=== PATIENT | female | born 1980 | race Caucasian/White ===

== ENCOUNTER → 2018-09-21 08:18 | Outpatient (CLI) | payer OTHER, SELFPAY ==
[2018-09-21 08:36] LABS: Bacteria Urine None Seen; RBC Urine None Seen (0-5/HPF); WBC Urine None Seen (0-5/HPF)
[2018-09-21 09:04] LABS: Hematocrit 36.8 % (36-46); Hemoglobin 12.1 g/dL (12.0-16.0); Mean Corpuscular HGB Conc 32.7 % (30-36); Mean Corpuscular Hemoglobin 27.1 PG (26-34); Mean Corpuscular Volume 82.7 fL (80-100); Platelet Count 246 X10^3/uL (150-400); Red Blood Cell Count 4.45 X10^6/uL (4.0-5.2); Red Cell Distribution Width 14.5 % (11.6-14.8); White Blood Cell Count 6.4 X10^3/uL (4.5-11.0)
[2018-09-21 09:06] LABS: Appearance Urine UA CLEAR; Bilirubin Urine UA NEGATIVE (NEGATIVE); Color Urine UA YELLOW; Glucose Urine UA NEGATIVE (Negative); Ketones Urine UA NEGATIVE (NEGATIVE); Leukocyte Esterase Urine UA NEGATIVE (NEGATIVE); Nitrite Urine UA NEGATIVE (Negative); Occult Blood Urine UA NEGATIVE (Negative); Protein Urine UA NEGATIVE (Negative); Specific Gravity Urine UA 1.025 (1.000-1.035); Urobilinogen Urine UA 0.2 E.U./dL (0.2); pH Urine UA 5.5 (4.5-8.0)
[2018-09-21 09:18] LABS: Urine Comments Microscopic Normal
[2018-09-21 09:19] LABS: Culture Indicated Urine Cult Not Indicated
[2018-09-21 09:42] LABS: Alanine Aminotransferase 11 IU/L (9-52); Albumin 4.1 g/dL (3.5-5.0); Albumin Globulin Ratio 1.4 (1.0-2.8); Alkaline Phosphatase 75 U/L (38-126); Aspartate Aminotransferase 19 IU/L (14-36); BUN Creatinine Ratio 22.5 (6-22); Bilirubin Total 0.2 mg/dL (0.2-1.3); Blood Urea Nitrogen 18 mg/dL (7-17); Carbon Dioxide 26 mmol/L (22-32); Chloride 105 mmol/L (98-107); Cholesterol 149 mg/dL (140-199); Estimated Glomerular Filt Rate > 60.0 mL/min (>60); Glucose 91 mg/dL (70-100); HDL Cholesterol 58 mg/dL (40-60); HEMOLYSIS < 15 (0-50); LDL Cholesterol Calculated 78 mg/dL (<100); Potassium 4.1 mmol/L (3.4-5.1); Sodium 140 mmol/L (137-145); Total Protein 7.1 g/dL (6.3-8.2); Triglycerides 64 mg/dL (35-150)
== END ==
PROVIDERS: PCP Nurse Practitioner Family; Visit Provider Nurse Practitioner Family
DX: Z00.00 Encounter for general adult medical examination without abnormal findings (principal); Z13.6 Encounter for screening for cardiovascular disorders
CPT/HCPCS: 36415; 80053; 80061; 81001; 85027

== ENCOUNTER → 2020-06-03 15:40 | Outpatient (CLI) | payer OTHER, MEDICAID, SELFPAY ==
--- NOTE | 2020-06-03 | DI.US.S_ITS ---
PROCEDURE: US OB >= 14 WEEKS FETUS INDICATIONS: 20 WEEKS ANATOMY SCAN OUTSIDE/PRIOR DATING DATA: Last menstrual period (LMP): 01/13/2020. LMP-based estimated date of delivery (ALANNAH): 10/19/2020 . First dating scan (date and location): 06/03/2020 . Estimated date of delivery (ALANNAH) from first dating scan: 10/21/2020 . TECHNIQUE: Real-time scanning was performed of the fetus, with image documentation and biometric measurements. Endovaginal scanning: No COMPARISON: None. FINDINGS: General: A single living intrauterine gestation is present. Presentation: Vertex. Placenta: Placental position is posterior , without previa. Amniotic fluid index: 13.4 cm, normal range is 5-24 cm. heart rate: 141 beats per minute. Maternal cervical canal: 4.4 cm long. Normal lower limit is 2.5 cm biometrics: Biparietal diameter: 20 weeks 1 day Head circumference: 20 weeks Abdominal circumference: 19 weeks 5 days Femur length: 20 weeks 1 day Estimated gestational age from initial scan: not applicable. Composite gestational age from present scan: 20 weeks 0 days Estimated weight and percentile: 323 g, 28th percentile Measurement variability for biometric dating: +/- 7 days from 14 weeks to 15 weeks 6 days gestation, +/- 10 days from 16 weeks to 21 weeks 6 days gestation, +/- 2 weeks from 22 weeks to 27 weeks 6 days gestation, +/- 3 weeks for 28 weeks gestation or later. weight reference: 4500 g or EFW >90/95% is considered macrosomia or large for gestational age. EFW <10% is small for gestational age. EFW 5% or less is considered intra-uterine growth restriction. Anatomic survey: Neuro: Ventricles are non-dilated at less than 10 mm. Cisterna magna is normal at 3-11 mm. Cerebellum is normal in size and morphology. Nuchal skin fold: Normal at less than 6 mm between 14-21 weeks gestational age. Face: Nose and lips, facial profile are normal. Spine: No evidence for spina bifida. Heart: 4-chambered heart is present, with normal ventricular outflow tracts. Diaphragm: Diaphragm is intact. Stomach: Left-sided stomach is present. Kidneys: No hydronephrosis. Normal is less than 5 mm in 2nd trimester, less than 7 mm in 3rd trimester. Cord: 3-vessel cord has orthotopic insertion. Bladder: Normal in size. Extremities: All 4 extremities identified. IMPRESSION: 1. 20 week 0 day single living IUP corresponding to ultrasound ALANNAH of 10/21/2020. 2. Normal anatomic survey. Dictated by: Jairo Brooks [facility] Interpreted: Marcos Marina MD on 06/03/2020 at 16:59 Approved by: Marcos Marina M.D. on 06/03/2020 at 17:38
== END ==
PROVIDERS: PCP Nurse Practitioner Family; Referring Provider Nurse Practitioner Obstetrics & Gynecology; Visit Provider Nurse Practitioner Obstetrics & Gynecology
DX: Z36.89 Encounter for other specified antenatal screening (principal); Z3A.20 20 weeks gestation of pregnancy
CPT/HCPCS: 76811

== ENCOUNTER → 2020-07-17 08:09 | Outpatient (CLI) | payer OTHER, MEDICAID, SELFPAY ==
[2020-07-17 09:26] LABS: Hematocrit 32.3 % (36-46); Hemoglobin 10.7 g/dL (12.0-16.0); Mean Corpuscular HGB Conc 33.1 % (30-36); Mean Corpuscular Volume 87.8 fL (80-100); Platelet Count 227 X10^3/uL (150-400); Red Blood Cell Count 3.68 X10^6/uL (4.0-5.2); Red Cell Distribution Width 13.2 % (11.6-14.8); White Blood Cell Count 7.6 X10^3/uL (4.5-11.0)
[2020-07-17 09:42] LABS: GTT (PREG) 1 Hour PP 50gm Dose 110 mg/dL (76-139)
== END ==
PROVIDERS: PCP Nurse Practitioner Family; Referring Provider Nurse Practitioner Obstetrics & Gynecology; Visit Provider Nurse Practitioner Obstetrics & Gynecology
DX: Z34.90 Encounter for supervision of normal pregnancy, unspecified, unspecified trimester (principal); Z13.1 Encounter for screening for diabetes mellitus; Z3A.26 26 weeks gestation of pregnancy
CPT/HCPCS: 36415; 82950; 85027

== ENCOUNTER → 2020-09-20 19:11 | Outpatient (ROUT) | payer OTHER, MEDICAID, SELFPAY ==
[2020-09-20 19:28] LABS: Add Manual Diff / Slide Review NO; Basophils Absolute Auto 0 /uL (0-100); Basophils Percent Auto 0.3 % (0-2); Eosinophils Absolute Auto 100 /uL (0-450); Hematocrit 32.8 % (36-46); Hemoglobin 10.8 g/dL (12.0-16.0); Lymphocytes Absolute Auto 2200 /uL (1100-4500); Mean Corpuscular Hemoglobin 27.9 PG (26-34); Mean Corpuscular Volume 84.4 fL (80-100); Monocytes Absolute Auto 900 /uL (0-900); Monocytes Percent Auto 11.8 % (3-14); Neutrophils Absolute Auto 4000 /uL (1500-7000); Neutrophils Percent Auto 55.9 % (50-75); Platelet Count 234 X10^3/uL (150-400); Red Blood Cell Count 3.88 X10^6/uL (4.0-5.2); Red Cell Distribution Width 14.6 % (11.6-14.8); White Blood Cell Count 7.2 X10^3/uL (4.5-11.0)
[2020-09-20 19:44] LABS: Aspartate Aminotransferase 27 IU/L (14-36); BUN Creatinine Ratio 14.5 (6-22); Blood Urea Nitrogen 9 mg/dL (7-17); Estimated Glomerular Filt Rate > 60.0 mL/min (>60); Uric Acid 3.8 mg/dL (2.5-6.2)
[2020-09-20 19:45] LABS: Protein (Total) Urine Random 7 mg/dL (0-12); Protein Creatinine Ratio Urine 0.02 GRAM/24H
== END ==
PROVIDERS: PCP Nurse Practitioner Family; Visit Provider Nurse Practitioner Obstetrics & Gynecology
DX: Z34.93 Encounter for supervision of normal pregnancy, unspecified, third trimester (principal); R03.0 Elevated blood-pressure reading, without diagnosis of hypertension
CPT/HCPCS: 82570; 84156; 84450; 84550; 85025; 87081

== ENCOUNTER 2020-10-18 22:58 | Inpatient (IN) | payer OTHER, MEDICAID, SELFPAY ==
--- NOTE | 2020-10-18 23:10 | PM.OBHP.1 ---
OB HPI Date/Time Date of admission: 10/18/20 Date Patient Seen: 10/18/20 Time Patient Seen: 23:00 History of Present Condition Chief complaint: : 3 Para: 2 Estimated Date of Delivery: 10/19/20 Estimated Gestational Age (weeks): 39.6 Narrative: Clarisse Lemons is a 40 year old female @ [id number] by LMP and early US who presents for evaluation of labor. Desires low intervention, unmedicated . Has been having strong contractions for just over an hour. Uncomplicated PN care w/ CNM. is present and supportive. History of Present care: good care, initiated at week # (11), number of visits (11) and pounds weight gain (-2) Dating criteria: LMP confirmed by 1st trimester US Ultrasounds: normal mid trimester US Obstetrical complications: none Medical complications: other (subclinical hypothyroid) Preadmission Labs Blood type: O (+) positive -: Antibody screen: negative, GBS status: negative, HBsAG: negative and RPR/VDLR: negative -: Chlamydia screen: not detected and Gonorrhea screen: not detected -: Rubella: immune HCT: 32.8 HCAB: negative 1 hr GTT: 110 Prior (ies) History: 08/23/12: NSVB@ 40.1wks, male, Luis Fernando, 6onw8wk, 17hr, epis w/ 3rd degree, PPD 09/17/16: NSVB @ 39.4wks, female, Lashanda, 5hr, 2nd degree Evaluation Evaluation Comments: not completed, 2nd stage shortly after arrival [facility] Medical History Allergies (~2007) Asthma (~2007) Depression (~2012) Encounter for wellness examination in adult Psoriasis (~1995) Surgical History Anesthesia History of tonsillectomy (~1982) Social History Smoking Status: Never smoker second hand exposure: No alcohol intake: never substance use type: does not use Meds Home Medications and Allergies Home Medications Medication Instructions Recorded Confirmed Type sertraline 50 mg tablet 50 mg PO DAILY 09/20/18 09/20/18 History Allergies Allergy/AdvReac Type Severity Reaction Status Date / Time No Known Drug Allergies Allergy Unverified 10/19/20 00:03 Review of Systems Review of Systems ROS: Yes All systems reviewed with the patient and are negative except as otherwise documented Exam Vital Signs (past 8 hours): BP 112/33, HR 94bpm, T 36.1C Resp Effort & Inspection: normal respiratory effort Auscultation: clear to auscultation bilaterally Cardio Rate: regular rate Rhythm: regular rhythm Heart Sounds: S1 normal and S2 normal Presentation: vertex Assessment and Plan Assessment and Plan Assessment and Plan narrative: Admit, routine orders. Continuous labor support. Anticipate NSVB shortly.
--- NOTE | 2020-10-18 23:45 | PM.OBPRVD ---
Labor & Delivery Delivery date: 10/19/20 Intrapartal Events: Precipitous Labor < 3 hours Cervical ripening method: none Induction method: none Delivery monitor: none Route of delivery: Episiotomy description: None L&D Laceration Description: Perineal - 1st Degree Delivery repair: chromic (3.0) Estimated blood loss (mL): 200 Anesthesia Type: None Narrative: Clarisse arrived on the unit in apparent active labor. Went to the bathroom to change into a gown and began to feel a spontaneous urge to push on the toilet with a bulging bag of yates noted. Clarisse was assisted to hands and knees on the bathroom for a NSVB of a vigorous baby girl in direct OA position en caul. There was no nuchal cord and the shoulders delivered easily. The was passed through Clarisse's legs to her arms. Clarisse was assisted to bed for spontaneous, Schultze delivery of an apparently intact placenta, membranes and 3VC. Fundus was immediately firm and bleeding minimal. Inspection revealed a short 1st degree perineal laceration which was repaired w/ 3.0 chromic, single stitch, under 1% lidocaine local. Baby 1: gender: Female Presentation: vertex Placenta delivery description: Spontaneous Cord Vessel Description: 3 Vessels score (1 min): 8 score (5 min): 9 weight: 2.873 kg Plan for aftercare: Routine care
[2020-10-18 23:56] VITALS: BP 108/58
[2020-10-19 00:59] LABS: COVID19 - ADMIT (NP swab/PCR) Negative (Negative)
[2020-10-19] MEDS: DERMOPLAST SPRAY 20% 60 ML 1 SPRAY TOP (13:24)
[2020-10-19] MEDS: LANOLIN OINT 7 GM 1 APPLIC TOP (13:24)
[2020-10-19] MEDS: IBUPROFEN 600 MG TABLET PO (13:24)
--- NOTE | 2020-10-19 17:40 | PM.OBDS.1 ---
Discharge Providers Provider Date of admission: 10/18/20 22:58 Discharge Date: 10/19/20 Primary care physician: JORDIN Shabazz Consults: 10/19/20 23:43 Consult to [employer] Routine Comment: Discharge provider: Kayla Corley CNM Summary Hospital Course Date Patient Seen: 10/19/20 Time Patient Seen: 17:40 Diagnoses: o70.0 Hospital Course: Clarisse is voiding, ambulating and independently, eager for discharge to home. Lochia is light, no clots. Tolerating general diet. Has declined pain medication, stating cramping pain is tolerable. Peripartum Data Delivery Method: Natural Vaginal Laceration Description: Perineal - 1st Degree Episiotomy description: None complications: none Burnett 1: Gender: Female Disposition of : home Discharge Diagnosis (1) First degree perineal laceration during delivery: Start Date: 10/18/20 Start Time: 23:16 Status: Acute Problem Details: routine course Status at Discharge Cognitive/behavioral status at discharge: oriented and calm Functional status at discharge: independent ambulation Overall status at discharge: patient is progressing back to baseline Time Spent with Patient Time attestation: Total time spent providing and/or coordinating discharge services: Time spent: Less than 30 minutes Specific discharge activities: pelvic rest x 6 weeks Objective Labs Labs: Laboratory Results - last 24 hr 10/18/20 23:55 SARS-CoV-2 (PCR) Negative Exam Vital Signs (past 8 hours): BP 112/67mmHg, HR 81bpm, RR 16/min, T 98.1F Temporal Other: Fundus firm, lochia light, no clots, perineum well approximated w/ mild edema Discharge Plan Discharge Plan Patient Disposition: Home Discharge orders & Medications Prescriptions: New acetaminophen 325 mg Tablet 650 mg PO Q6HR PRN (Reason: Pain, Mild (1-3)) 14 Days Qty: 60 RF: 0 ibuprofen 600 mg Tablet 600 mg PO Q6HR PRN (Reason: Pain, Mild (1-3)) 14 Days Qty: 90 RF: 0 Continued sertraline 50 mg tablet 50 mg PO DAILY 90 Days Qty: 90 RF: 4 Follow up/Referrals: Kayden Hoffman ARNP [Primary Care Provider] - Kayla Corley CNM [[employer]ologist] - Diet/Activity/Treatments Diet: Regular Activity: pelvic rest x 6 weeks Skin/Wound/Dressing Care Report to your healthcare provider any signs of infection, such as:: chills, fever, increased pain, unusual drainage and unusual redness Visit Report/Discharge Packet Instructions: Depression Stand Alone Forms: Discharge: Care Discharge Data Primary Care Provider: Kayden Hoffman
== END 2020-10-19 18:50 | disposition home or self-care (01) | DRG 560 ==
PROVIDERS: Admitting Provider Nurse Practitioner Obstetrics & Gynecology; PCP Nurse Practitioner Family; Referring Provider Nurse Practitioner Obstetrics & Gynecology; Visit Provider Nurse Practitioner Obstetrics & Gynecology
DX: O62.3 Precipitate labor (principal); Z3A.39 39 weeks gestation of pregnancy; Z37.0 Single live birth; O70.0 First degree perineal laceration during delivery; Z20.822 Contact with and (suspected) exposure to COVID-19
CPT/HCPCS: 87635; C9803; G0379

== ENCOUNTER 2020-10-19 20:36 | Observation (INO) | payer OTHER, MEDICAID, SELFPAY ==
[2020-10-19] VITALS (7 sets, daily range): BP systolic 107–125; BP diastolic 56–63; PULSE 75–93; RESP 8–19; TEMP 36.8; O2SAT 95–99; BMI 27.8
--- NOTE | 2020-10-19 | DI.ECHO.S_ITS ---
[facility]---------+ [facility] +---------+ : : [address] [place] [address] : : : : [id number] : : : : Phone: [phone]+ Echocardiogram Report + + :Name: DENNY PATEL Study Date: 10/20/2020 Height: 62 in : :[facility] ReadingLocation: Weight: 152 lb : : Gender: Female BSA: 1.7 m2 : :: 1980 Age: 40 yrs BP: 107/56 mmHg: :Reason For Study: SYNCOPE, R/O CVA : :Ordering Physician: EPIFANIO, : :TONYA Performed By: Yesenia Weiss : :Referring: TONYA GODFREY : + + Interpretation Summary Left ventricular systolic function is normal with an estimated ejection fraction of 60 to 65% without focal abnormality. Left ventricular size and wall thickness are normal with normal diastolic function and normal filling pressures. The right ventricle appears normal in size and systolic function. Right ventricular systolic pressure cannot be estimated CVP is likely around 3 mmHg. Both atria are normal in size. While the interatrial septum visually appears intact, injection of agitated saline echo contrast suggests a small number of bubbles within the left atrium within 3 beats of right atrial opacification, suggesting a probable small patent foramen ovale with scant right to left shunting but without evidence for significant left to right shunting. There is no significant valvular abnormality. Procedure: A two-dimensional transthoracic echocardiogram with color flow and Doppler was performed. The study quality was technically adequate. There is no prior echocardiogram noted for this patient. A saline contrast injection was performed to assess for cardiac shunting. The injection was performed through an intravenous line in the left arm. The patient was in sinus rhythm with heart rates between 69-83 bpm during the exam. Left Ventricle: The left ventricle appears normal in size, wall thickness, and systolic function without any focal wall motion abnormalities. The ejection fraction is estimated to be 60-65%. Diastolic parameters suggest probable normal left ventricular diastolic function and normal filling pressures. Right Ventricle: The right ventricle is normal in size and function. Atria: Both atria are normal in size. The interatrial septum grossly appears intact with no obvious evidence for an atrial septal defect. Injection of agitated saline echo contrast suggests a scant number of bubbles in the left atrium within 3 beats of right atrial opacification, suggesting a probable small patent foramen ovale. Mitral Valve: The mitral valve is normal in structure and function. There is trace mitral regurgitation. Aortic Valve: The aortic valve is trileaflet. The aortic valve opens well. There is no aortic valve stenosis. No aortic regurgitation is present. Tricuspid Valve: The tricuspid valve is normal in structure and function. There is trace tricuspid regurgitation. Pulmonary artery pressures cannot be estimated because of the lack of a measurable TR jet velocity but the IVC suggests a CVP of around 3 mmHg. Pulmonic Valve: The pulmonic valve leaflets are thin and pliable; valve motion is normal. There is trace pulmonic regurgitation. There is no significant valvular heart disease. Great Vessels: The aortic root is normal size. The dimensions of the ascending aorta are normal. The IVC is of normal diameter and collapses greater than 50% with a sniff. This suggests a low right atrial pressure of 3 mm Hg. Pericardium/ Pleura There is no pericardial effusion. There is no pleural effusion. MMode/2D Measurements & Calculations LVIDd: 4.8 cm LVOT diam: 1.9 cm LVIDs: 3.1 cm Ao root diam: 2.8 cm FS: 36.1 % asc Aorta Diam: 2.6 cm IVSd: 0.75 cm Ao Arch Diam (Prox Trans): 2.4 cm LVPWd: 0.80 cm LV rogers. diameter/BSA (cm/m^2): 2.8 LV sys. diameter/BSA (cm/m^2): 1.8 LA A2 area: 13.9 cm2 RA long axis: 4.5 cm LA A4 area: 16.9 cm2 RA area: 14.8 cm2 LA length (vol): 4.6 cm RA vol: 41.5 ml LA vol: 43.2 ml RA : 24.4 ml/m2 LA vol index: 25.4 ml/m2 IVC diam: 1.8 cm RVD1 (basal): 3.5 cm TAPSE: 2.5 cm Doppler Measurements & Calculations Ao V2 max: 184.7 cm/sec LVOT Max Reid: 96.5 cm/sec Ao V2 mean: 120.0 cm/sec LV V1 max P.7 mmHg Ao max P.6 mmHg LV V1 VTI: 19.2 cm Ao mean P.7 mmHg ERIC(I,D): 1.5 cm2 Ao V2 VTI: 35.2 cm ERIC(V,D): 1.4 cm2 sev ratio: 0.55 ERIC indexed to BSA (cm^2/m^2): 0.87 MV E max reid: 72.4 cm/sec PA V2 max: 127.1 cm/sec MV A max reid: 54.0 cm/sec PA V2 mean: 92.5 cm/sec MV E/A: 1.3 PA mean P.7 mmHg Med Peak E' Reid: 10.4 cm/sec PA pr(Accel): 20.8 mmHg E/E' med: 6.9 Lat Peak E' Reid: 16.1 cm/sec E/E' lat: 4.5 E/e' average: 5.7 MV dec time: 0.20 sec SV(LVOT): 51.9 ml Reading Physician:09:20 AM
--- NOTE | 2020-10-19 20:55 | DI.CT.S_ITS ---
PROCEDURE: CT HEAD/BRAIN WO CON INDICATIONS: near syncope/altered TECHNIQUE: Noncontrast 4.5 mm thick angled axial sections acquired from the foramen magnum to the vertex, with coronal and sagittal reformats. For radiation dose reduction, the following was used: automated exposure control, adjustment of mA and/or kV according to patient size. COMPARISON: None. FINDINGS: Image quality: Excellent. CSF spaces: Basal cisterns are patent. No extra-axial fluid collections. Ventricles are normal in size and shape. Brain: No midline shift. No intracranial masses or hemorrhage. Focal hypodensity in the left thalamus is suspicious for a chronic lacunar infarct. Godoy-white matter interface is normal. Skull and face: Calvarium and visualized facial bones are intact, without suspicious lesions. Sinuses: Visualized sinuses and mastoids are clear. IMPRESSION: 1. No acute intracranial abnormality. 2. Possible small chronic lacunar infarct in the left thalamus. 3. Consider MRI for further evaluation if symptoms continue. Dictated by: Apollo Medina M.D. on 10/19/2020 at 21:22 Approved by: Apollo Medina M.D. on 10/19/2020 at 21:26
[2020-10-19 21:13] LABS: BUN Creatinine Ratio 23.3 (6-22); Blood Urea Nitrogen 17 mg/dL (7-17); Carbon Dioxide 20 mmol/L (22-32); Chloride 106 mmol/L (98-107); Estimated Glomerular Filt Rate > 60.0 mL/min (>60); Glucose 99 mg/dL (70-100); HEMOLYSIS < 15 (0-50); Potassium 3.5 mmol/L (3.4-5.1); Sodium 134 mmol/L (137-145)
[2020-10-19 21:14] LABS: Magnesium 1.8 mg/dL (1.6-2.3)
--- NOTE | 2020-10-19 21:14 | PC.NURSE ---
Patient was at home in rocking chair talking to mother when reported to mother and spouse that something is wrong. Platter like she couldn't get up from chair or walk to car. Platter light headed and shaky. At time of arrival, was very pale, diaphoretic, mumbling, and staring away with minimal responses. Couldn't initially state order of events, word finding difficulty, not responsive to infant daughter in the room who was crying. When was able to speak, word finding difficulty, focal shaking, reports she was feeling better but still having difficulty forming thoughts and words. Post vaginal pad checked, not saturated with blood. B. Notified MD of patients condition, code stroke activated, patient directly to CT.
[2020-10-19 21:17] LABS: Add Manual Diff / Slide Review NO; Basophils Absolute Auto 0 /uL (0-100); Basophils Percent Auto 0.3 % (0-2); Eosinophils Absolute Auto 100 /uL (0-450); Eosinophils Percent Auto 0.8 % (2-4); Hematocrit 36.3 % (36-46); Lymphocytes Absolute Auto 2800 /uL (1100-4500); Lymphocytes Percent Auto 22.7 % (25-40); Mean Corpuscular Hemoglobin 27.9 PG (26-34); Mean Corpuscular Volume 84.4 fL (80-100); Monocytes Absolute Auto 1000 /uL (0-900); Monocytes Percent Auto 8.6 % (3-14); Neutrophils Absolute Auto 8200 /uL (1500-7000); Neutrophils Percent Auto 67.6 % (50-75); Platelet Count 238 X10^3/uL (150-400); Prothrombin Time 10.8 SECONDS (10.1-12.7); Red Cell Distribution Width 15.8 % (11.6-14.8); White Blood Cell Count 12.2 X10^3/uL (4.5-11.0)
--- NOTE | 2020-10-19 21:28 | ED.SYNCOPE ---
HPI - Syncope General Chief Complaint: Syncope Stated Complaint: Near Syncope Time Seen by Provider: 10/19/20 21:21 Source: patient and EMS Mode of arrival: EMS History of Present Illness HPI narrative: 40-year-old female presents by EMS for evaluation of a near syncopal episode and altered mental status presents by EMS for evaluation of acute confusion, slurred speech, trouble finding words at about 8:00 p.m.. She had been in her normal state of health just prior to this event. She denies any pain or fever chills. She was just discharged from the hospital today after delivering a child, full-term by vaginal delivery without complications. She denies any significant vaginal bleeding or discharge. She has no dysuria, frequency or urgency. She denies any history of the same and only complications during duration of was hypothyroid. She did have depression with 2 prior pregnancies and started sertraline 50 mg today. Patient activated as a code stroke Related Data Previous Rx's Medication Instructions Recorded acetaminophen 325 mg tablet 650 mg PO Q6HR PRN 14 Days #60 tab 10/19/20 ibuprofen 600 mg tablet 600 mg PO Q6HR PRN 14 Days #90 tab 10/19/20 sertraline 50 mg tablet 50 mg PO DAILY 90 Days #90 tab 10/19/20 Allergies Allergy/AdvReac Type Severity Reaction Status Date / Time No Known Drug Allergies Allergy Unverified 10/19/20 20:52 Review of Systems Review of Systems Narrative: GENERAL: Denies chills, fatigue, malaise, fever, sweats. HEENT: Denies sinus pain, ear pain, sore throat, difficulty swallowing, dizziness. RESPIRATORY: Denies dyspnea, cough, wheezing, hemoptysis, sputum. CARDIOVASCULAR: Denies chest pain, palpitations, orthopnea, edema, GASTROINTESTINAL: Denies nausea, vomiting, abdominal pain, diarrhea, constipation, melena. : Denies dysuria, frequency, incontinence, hematuria, urinary retention. MUSCULOSKELETAL: denies weakness, joint pain, or bony pain SKIN: Denies rash, skin lesions, or other NEUROLOGIC: See HPI PSYCHIATRIC: No concerning psychosocial issues. 12 point review of systems is negative except for those stated above Patient History Medical History Allergies (~2007) Asthma (~2007) Depression (~2012) Encounter for wellness examination in adult Psoriasis (~1995) Surgical History Anesthesia History of tonsillectomy (~1982) Social History household members: spouse, family and children Smoking Status: Never smoker second hand exposure: No alcohol intake: never substance use type: does not use Smoking Status: Never smoker Exam Narrative Exam Narrative: GENERAL: [40] year old patient appears stated age. Well-developed patient, in mild distress. Pale, stuttering speech HEAD: Atraumatic. Normocephalic. EYES: Pupils equal round and reactive. Extraocular motions intact. No scleral icterus. No injection or drainage. ENT: Nose without bleeding, purulent drainage. Throat without erythema, tonsillar hypertrophy or exudate. Airway patent. NECK: Trachea midline. Non tender CARDIOVASCULAR: Regular rate and rhythm without murmurs, gallops, or rubs. RESPIRATORY: Clear to auscultation. Breath sounds equal bilaterally. No wheezes, rales, or rhonchi. GASTROINTESTINAL: Abdomen soft, non-tender, nondistended. EXTREMITIES: No edema or joint tenderness. BACK: Nontender without deformity or crepitance. No flank tenderness. NEURO: AOx3. SKIN: No rash or erythema of visible areas Initial Vital Signs Initial Vital Signs: Vital Signs Temperature 98.3 F 10/19/20 20:47 Pulse Rate 93 H 10/19/20 20:47 Respiratory Rate 12 10/19/20 20:47 Blood Pressure 125/63 10/19/20 20:47 Pulse Oximetry 99 10/19/20 20:47 Scores NIH Stroke Scale Level of Conciousness: Alert, keenly responsive Ask month/age: Answers both questions correctly. Open/close eyes, close hand: Performs both tasks correctly Best gaze horizontal: Normal Visual howard: No visual loss Facial palsy: Normal symetrical movement Left arm drift: No drift for full 10 sec Right arm drift: No drift for full 10 sec Left leg drift: No drift for full 5 sec Right leg drift: No drift for full 5 sec Limb ataxia: Absent Sensory on face/arms/legs: Normal, no sensory loss Best language: Mild to moderate, slurs some words Dysarthria: Mild to mod,some slurring Extinction or inattention: No abnormality Total NIH Stroke scale score: 2 Course Orders Ordered: ED Orders 10/19/20 20:44 Basic Metabolic Panel Stat Complete Blood Count AUTO DIFF Stat Magnesium Stat Prothrombin Time INR Stat Type and Screen Stat 10/19/20 20:55 CT head/brain wo con Stat Urinalysis and Microscopic Stat 10/19/20 20:56 EKG-12 Lead Stat 10/19/20 21:46 CT angio head and neck Stat Acetaminophen (Acetaminophen 325 Mg Tablet) 650 mg PO Q6HR PRN PRN Reason: Pain, Mild (1-3) Hydrocodone Bitart/Acetaminophen (Hydrocodone/Acet 5/325 Tablet) 1 tab PO Q4HR PRN PRN Reason: Pain, Moderate (4-6) Carboprost Tromethamine (Carboprost 250 Mcg/Ml Ampul) 250 mcg IM Q90MIN PRN PRN Reason: Bleeding Oxytocin/Lactated Ringer's (Oxytocin Premix) 30 unit in 500 mls @ 200 mls/hr IV CONT PRN; Protocol PRN Reason: Bleeding Tranexamic Acid 1,000 mg/ (Sodium Chloride) 100 mls @ 200 mls/hr IV NOW PRN PRN Reason: Bleeding Ibuprofen (Ibuprofen 600 Mg Tablet) 600 mg PO Q6HR PRN PRN Reason: Pain, Mild (1-3) Methylergonovine Maleate (Methylergonovine 0.2 Mg Tablet) 0.2 mg PO Q6HR PRN PRN Reason: Heavy bleeding Methylergonovine Maleate (Methylergonovine 0.2 Mg/Ml Vial) 0.2 mg IM NOW PRN PRN Reason: Bleeding Misoprostol (Misoprostol 200 Mcg Tablet) 800 mcg DE NOW PRN PRN Reason: Bleeding Misoprostol (Misoprostol 200 Mcg Tablet) 1,000 mcg DE NOW PRN PRN Reason: Bleeding Misoprostol (Misoprostol 200 Mcg Tablet) 400 mcg SL NOW PRN PRN Reason: Bleeding Naloxone HCl (Naloxone 0.4 Mg/Ml Vial) 0.2 mg IV Q2MIN PRN PRN Reason: Opiate Reversal Oxytocin (Oxytocin 10 Unit/Ml Vial) 10 unit IM NOW PRN PRN Reason: Bleeding Vit/Calcium/Iron/Folic Ac ( Vit,Calc/Iron/Folic 1 Tablet) 1 tab PO DAILY BRAD Reevaluation(s) Reevaluation #1: patient with significantly improving symptoms by the time [facility] performs evaluation, no TPA indicated, particularly given the risk in the post delivery phase. Consultations Consultation #1: call to [facility] (see above) no TPA, but recommend admission for echo, MRI and MRV Time: 21:30 Consultation #2: Dr. Herron happy to accept on her service, will admit to L&D given Vital Signs Vital signs: Vital Signs - 8 hr 10/19/20 20:47 10/19/20 21:06 10/19/20 21:11 Temperature 98.3 F Pulse Rate 93 H 76 84 Respiratory Rate 12 19 18 Blood Pressure 125/63 119/59 L Pulse Oximetry 99 96 97 10/19/20 21:30 10/19/20 22:00 Temperature Pulse Rate 83 80 Respiratory Rate 15 17 Blood Pressure 116/63 107/56 L Pulse Oximetry 96 95 MDM - Syncope Lab Data Result diagrams: 10/19/20 20:44 10/19/20 20:44 Labs: Lab Results 10/19/20 10/19/20 10/19/20 Range/Units 20:44 20:44 20:44 WBC 12.2 H (4.5-11.0) X10^3/uL RBC 4.30 (4.0-5.2) X10^6/uL Hgb 12.0 (12.0-16.0) g/dL Hct 36.3 (36-46) % MCV 84.4 (80-100) fL MCH 27.9 (26-34) PG MCHC 33.0 (30-36) % RDW 15.8 H (11.6-14.8) % Plt Count 238 (150-400) X10^3/uL Neut % (Auto) 67.6 (50-75) % Lymph % (Auto) 22.7 L (25-40) % [place] % (Auto) 8.6 (3-14) % Eos % (Auto) 0.8 L (2-4) % Baso % (Auto) 0.3 (0-2) % Neut # (Auto) 8200 H (3982-6046) /uL Lymph # (Auto) 2800 (0431-8262) /uL [place] # (Auto) 1000 H (0-900) /uL Eos # (Auto) 100 (0-450) /uL Baso # (Auto) 0 (0-100) /uL PT 10.8 (10.1-12.7) SECONDS INR 1.0 (0.9-1.3) Sodium 134 L (137-145) mmol/L Potassium 3.5 (3.4-5.1) mmol/L Chloride 106 (98-107) mmol/L Carbon Dioxide 20 L (22-32) mmol/L BUN 17 (7-17) mg/dL Creatinine 0.73 (0.52-1.04) mg/dL Estimated GFR > 60.0 (>60) mL/min BUN/Creatinine Ratio 23.3 H (6-22) Glucose 99 (70-100) mg/dL Calcium 9.0 (8.4-10.2) mg/dL Magnesium (1.6-2.3) mg/dL Blood Type Antibody Screen 10/19/20 10/19/20 Range/Units 20:44 20:44 WBC (4.5-11.0) X10^3/uL RBC (4.0-5.2) X10^6/uL Hgb (12.0-16.0) g/dL Hct (36-46) % MCV (80-100) fL MCH (26-34) PG MCHC (30-36) % RDW (11.6-14.8) % Plt Count (150-400) X10^3/uL Neut % (Auto) (50-75) % Lymph % (Auto) (25-40) % [place] % (Auto) (3-14) % Eos % (Auto) (2-4) % Baso % (Auto) (0-2) % Neut # (Auto) (1306-5990) /uL Lymph # (Auto) (2692-5941) /uL [place] # (Auto) (0-900) /uL Eos # (Auto) (0-450) /uL Baso # (Auto) (0-100) /uL PT (10.1-12.7) SECONDS INR (0.9-1.3) Sodium (137-145) mmol/L Potassium (3.4-5.1) mmol/L Chloride (98-107) mmol/L Carbon Dioxide (22-32) mmol/L BUN (7-17) mg/dL Creatinine (0.52-1.04) mg/dL Estimated GFR (>60) mL/min BUN/Creatinine Ratio (6-22) Glucose (70-100) mg/dL Calcium (8.4-10.2) mg/dL Magnesium 1.8 (1.6-2.3) mg/dL Blood Type O Positive Antibody Screen Negative Imaging Data CT scan - head: Radiologist's Impression: [address] [id number] Scan ReportSigned Patient: Clarisse Lemons GMR#: [id number]: 1980Acct:[id number]/Sex: 40 / FDate of Service: 10/19/20Loc: EDAccession Number: [id number] Procedure: CT head/brain wo con Ordering Provider: Jesus Mckoy D.O. PROCEDURE: CT HEAD/BRAIN WO CON INDICATIONS: near syncope/altered TECHNIQUE: Noncontrast 4.5 mm thick angled axial sections acquired from the foramen magnum to the vertex, with coronal and sagittal reformats. For radiation dose reduction, the following was used: automated exposure control, adjustment of mA and/or kV according to patient size. COMPARISON: None. FINDINGS: Image quality: Excellent. CSF spaces: Basal cisterns are patent. No extra-axial fluid collections. Ventricles are normal in size and shape. Brain: No midline shift. No intracranial masses or hemorrhage. Focal hypodensity in the left thalamus is suspicious for a chronic lacunar infarct. [place]-white matter interface is normal. Skull and face: Calvarium and visualized facial bones are intact, without suspicious lesions. Sinuses: Visualized sinuses and mastoids are clear. IMPRESSION: 1. No acute intracranial abnormality. 2. Possible small chronic lacunar infarct in the left thalamus. 3. Consider MRI for further evaluation if symptoms continue. Dictated by: Apollo Medina M.D. on 10/19/2020 at 21:22 Approved by: Apollo Medina M.D. on 10/19/2020 at 21:26 CTA Head/Neck: Radiologist's Impression: No acute findings MDM Narrative Medical decision making narrative: Multiple diagnoses considered including ischemic stroke as well as venous thrombus stroke. Imaging initially reassuring and patient's symptoms have improved, however she will be admitted for completion of evaluation. Other diagnoses such as the possibility of seizure due to unknown eclampsia, medication reaction from sertraline, hypoglycemia and fatigued versus other. Discharge Plan Departure Patient Disposition: Admitted as Observation Clinical Impression: Brain TIA, Near syncope Admit Date/Time: 10/19/20 22:24 Admit Provider: Paola Herron
--- NOTE | 2020-10-19 21:46 | DI.CT.S_ITS ---
PROCEDURE: CT ANGIO HEAD AND NECK INDICATIONS: stroke symptoms TECHNIQUE: After the administration of intravenous contrast, 1 mm thick sections acquired from the aortic arch through the [place]. Post-contrast 4.5 mm thick sections then re-acquired from the foramen magnum to the vertex. 3-dimensional pnwsozj-qjkisbkxu-yfavddoyzk (MIP) and/or volume rendering reformats were acquired of the central intracranial vasculature and neck separately. COMPARISON: [facility], CT, CT HEAD/BRAIN WO CON, 10/19/2020, 21:01. FINDINGS: Image quality: Excellent. BRAIN: CSF spaces: Ventricles are normal in size and shape. Basal cisterns are patent. No extra-axial fluid collections. Brain: No midline shift. No intracranial bleeds or masses. [place]-white matter interface appears intact. Scattered low-attenuation white matter foci are present particularly in the right frontal lobe. Skull and face: Calvarium and facial bones appear intact, without suspicious lesions. Orbits appear normal. Sinuses: Sinuses and mastoids are clear. HEAD CT ANGIOGRAPHY: Anterior circulation: Intracranial internal carotid arteries are normal in size and flow. The flow within the paired anterior cerebral arteries is normal and symmetric. The flow within the middle cerebral arteries is normal and symmetric. The anterior communicating artery is seen. No aneurysms are seen. Posterior circulation: Visualized portions of the vertebral arteries demonstrate normal caliber, and join to form a normal appearing basilar artery. Flow within the posterior cerebral arteries is normal and symmetric. No aneurysms are seen. NECK CT ANGIOGRAPHY: Carotid system: The great vessels demonstrate a conventional anatomy as they arise from the aortic arch. The origins of the common carotid arteries appear patent. The common carotid arteries demonstrate normal caliber and courses. The bifurcation regions are both widely patent. The internal carotid arteries demonstrate normal calibers and courses. Posterior circulation: The origins of the vertebral arteries both appear widely patent. The more superior extracranial portions of both vertebral arteries also demonstrate normal courses and calibers. They join to form a normal appearing basilar artery. Soft tissues: Visualized neck soft tissues demonstrate no suspicious abnormalities. Bones: No suspicious bony lesions. Visualized cervical spine appears normally aligned. IMPRESSION: 1. No acute intracranial process. 2. Minimal appearance of low attenuation within the subcortical white matter particularly within the right frontal lobe. This is overall nonspecific. This can be seen with sequela of previous infection/ischemia, early chronic microvascular ischemic changes, demyelinating disease, vasculitis or migraine sequela. 3. No areas of hemodynamically significant stenosis, vascular occlusion or aneurysmal dilation within the anterior or posterior circulation. 4. No areas of hemodynamically significant stenosis, vascular occlusion or aneurysmal dilation within the neck vasculature. The above findings are concordant with preliminary report. Any quantitative measurements of stenosis were performed using NASCET criteria. Dictated by: Linette Jones M.D. on 10/20/2020 at 8:56 Approved by: Linette Jones M.D. on 10/20/2020 at 9:42
--- NOTE | 2020-10-19 22:34 | DI.MRI.S_ITS ---
PROCEDURE: MR STROKE Pre- and post-contrast brain MRI, non-contrast brain MR angiogram, pre- and postcontrast neck MR angiogram INDICATIONS: syncope, r/o CVA TECHNIQUE: Brain: Noncontrast axial T1 spin echo, axial T2 fast spin echo, sagittal and axial FLAIR, coronal T2 fast spin echo, axial gradient echo, axial diffusion and ADC through the brain. After the administration of contrast, axial 3D VIBE of the cranial vasculature and brain. Brain MRA: Non-contrast 3-D time of flight MR angiogram, with multiple hhbwdzi-wytqnzism-hgexpdkive (MIP) reformats performed. Neck MRA: Axial and sagittal TruFISP through the neck. Coronal dynamic MR angiogram during administration of contrast in the arterial and venous phases, with 3-dimenstional ufgbkgl-fckoawfji-vqdnigampn (MIP) reformats constructed from subtraction images. COMPARISON: [facility], CT, CT ANGIO HEAD AND NECK, 10/19/2020, 21:50. [facility], CT, CT HEAD/BRAIN WO CON, 10/19/2020, 21:01. FINDINGS: Image quality: Excellent. BRAIN: CSF spaces: Ventricles are normal in size and shape. Basal cisterns are patent. No extra-axial fluid collections. Brain: There is a cystic focus in the left thalamus and basal ganglia measuring 1.2 centimeters maximum axial dimension (series 28, image 13 and series 45, image 79). This likely represents either a small neuroglial cyst or potentially an area of encephalomalacia. There are several small foci of increased T2/FLAIR signal in the anterior frontal lobe subcortical and deep white matter. These have some corresponding T1 hypointensity. No corresponding enhancement. No elevated T2 signal abnormalities are seen in the posterior cortices or in the posterior fossa. No restricted diffusion to indicate recent ischemia. The major intracranial vascular flow-related signal voids are maintained. There is no abnormal intracranial susceptibility. 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 Skull and face: Calvarial marrow signal is normal. Orbits appear normal. Sinuses: Sinuses and mastoids are clear. BRAIN MR ANGIOGRAM: Anterior circulation: Intracranial internal carotid arteries are normal in size and enhancement. The flow within the paired anterior cerebral arteries is normal and symmetric. The flow within the middle cerebral arteries is normal and symmetric. The anterior communicating artery is seen. No stenoses, occlusions, or aneurysms. Posterior circulation: The visualized portions of the vertebral arteries demonstrate normal caliber, and join to form a normal appearing basilar artery. The flow within the posterior cerebral arteries is normal and symmetric. No stenoses, occlusions, or aneurysms. NECK MR ANGIOGRAM: Carotids: Great vessels demonstrate a conventional anatomy as they arise from the aortic arch. The origins of the common carotid arteries appear patent. The calibers and courses of both common carotid arteries are normal. The bifurcation regions appear normal bilaterally. The internal carotid arteries demonstrate normal course and caliber. Posterior circulation: The origins of the vertebral arteries appear patent. More superior portions of both vertebral arteries demonstrate normal course and caliber, and join to form a normal appearing basilar artery. Miscellaneous: Subclavian arteries appear patent. Pre-contrast images through the neck show no soft tissue abnormalities. IMPRESSION: BRAIN MRI: 1. Approximately 1.2 centimeter cystic abnormality in the left thalamus and basal ganglia, communicating with the 3rd ventricle. This likely represents either a neuroglial cyst, append mole cyst, dilated perivascular space, or potentially an area of encephalomalacia. There is no associated enhancement or gliosis. 2. Several foci of increased T2/FLAIR signal in the anterior frontal lobe white matter. These are nonspecific but most likely reflect early changes related to chronic microvascular angiopathy. There is no enhancement or associated restricted diffusion. A demyelinating disorder is considered unlikely but cannot be strictly excluded. The lesions are highly inconsistent with posterior reversal encephalopathy syndrome. BRAIN MR ANGIOGRAM: 1. No hemodynamically significant stenosis or occlusion of the intracranial vasculature. NECK MR ANGIOGRAM: 1. No hemodynamically significant stenosis of the intracranial vasculature. Dictated by: Jeff Gomez M.D. on 10/20/2020 at 11:12 Approved by: Jeff Gomez M.D. on 10/20/2020 at 11:27
--- NOTE | 2020-10-19 22:43 | PM.HP.1 ---
History of Present Illness History of Present Illness Time Patient Seen: 22:44 Chief complaint: Near Syncope Narrative: 40 year old one day status post a of a viable infant at 39w6d is admitted from the ED for observation secondary to near syncopal episode and altered mental status. was uncomplicated except for subclinical hypothyroidism. Reports that she was on the couch in her normal state of health and started feeling funny. Began having slurred speech, trouble finding her words, and acute confusion at approximately 8:00 p.m. last night. Denies fever, chills, or unusual pain. Lochia is less than menses. No dysuria, frequency, or urgency. No previous history of syncope or stroke. Was discharged on sertraline 50 mg p.o. q.day secondary to history of depression, had her 1st pill today. Viital signs upon admission to the ED included a temperature of 98.3?, pulse 93, respirations 12, blood pressure 125/63, O2 saturation 99% on room air. Patient activated as a code stroke. NIH stroke scale 2. Labs essentially unremarkable except for a slightly elevated white count and slightly low sodium. CT head showed no acute intracranial abnormalities but a possible small lacunar infarct in the left thalamus. Telehealth neurology was consulted and they recommended admission for observation and further investigation with MRI and MRV. Prior to transfer to the floor, patient was back to her baseline. She has had an uneventful night. She is breast-feeding well. pain controlled with medications. Lochia less than menses. Appetite full, no nausea or vomiting. She has been ambulating around the room. Patient History Medical History Allergies (~2007) Asthma (~2007) Depression (~2012) Encounter for wellness examination in adult Psoriasis (~1995) Surgical History Anesthesia History of tonsillectomy (~1982) Family & Social History Safety & Behavioral: Feels Safe in Current Yes Environment Been Physically Hurt or No Threatened By a Person Tobacco & Substance use: Smoking Status Never smoker alcohol intake never Meds Home Medications and Allergies Home Medications Medication Instructions Recorded Confirmed Type acetaminophen 325 mg tablet 650 mg PO Q6HR PRN 14 Days #60 tab 10/19/20 10/20/20 Rx ibuprofen 600 mg tablet 600 mg PO Q6HR PRN 14 Days #90 tab 10/19/20 10/20/20 Rx sertraline 50 mg tablet 50 mg PO DAILY 90 Days #90 tab 10/19/20 10/20/20 Rx Allergies Allergy/AdvReac Type Severity Reaction Status Date / Time No Known Drug Allergies Allergy Unverified 10/19/20 20:52 Review of Systems Review of Systems Narrative: Please see HPI. Exam Vital Signs (past 8 hours): - 10/19/20 20:47 Temperature 98.3 F Pulse Rate 93 H Respiratory Rate 12 Blood Pressure 125/63 Pulse Oximetry 99 Oxygen Delivery Method Room Air Narrative Exam Narrative: General: NAD Skin: Color unremarkable, no rash nor lesions HEENT: Neck supple with midline trachea Lungs: CTAB, no w/r/r Heart: Normal rate and regular rhythm, S1, S2 normal, no murmurs, click, rub or gallop Abdomen: FF, U-1, soft, non-tender, +BS Extremities: No edema, no cyanosis Neuro: Cranial nerves 2-12 grossly intact, no focal deficits. Objective Labs Result Diagrams: 10/20/20 06:41 10/20/20 06:41 Labs: Laboratory Results - last 24 hr 10/19/20 10/19/20 10/19/20 20:44 20:44 20:44 WBC 12.2 H RBC 4.30 Hgb 12.0 Hct 36.3 MCV 84.4 MCH 27.9 MCHC 33.0 RDW 15.8 H Plt Count 238 Neut % (Auto) 67.6 Lymph % (Auto) 22.7 L [place] % (Auto) 8.6 Eos % (Auto) 0.8 L Baso % (Auto) 0.3 Neut # (Auto) 8200 H Lymph # (Auto) 2800 [place] # (Auto) 1000 H Eos # (Auto) 100 Baso # (Auto) 0 PT 10.8 INR 1.0 Sodium 134 L Potassium 3.5 Chloride 106 Carbon Dioxide 20 L BUN 17 Creatinine 0.73 Estimated GFR > 60.0 BUN/Creatinine Ratio 23.3 H Glucose 99 Calcium 9.0 Magnesium Blood Type Antibody Screen 10/19/20 10/19/20 20:44 20:44 WBC RBC Hgb Hct MCV MCH MCHC RDW Plt Count Neut % (Auto) Lymph % (Auto) [place] % (Auto) Eos % (Auto) Baso % (Auto) Neut # (Auto) Lymph # (Auto) [place] # (Auto) Eos # (Auto) Baso # (Auto) PT INR Sodium Potassium Chloride Carbon Dioxide BUN Creatinine Estimated GFR BUN/Creatinine Ratio Glucose Calcium Magnesium 1.8 Blood Type O Positive Antibody Screen Negative Assessment & Plan Assessment & Plan narrative: 1. Status post at 39w6d 2. 3. Pospartum Day #2 4. Near Syncope, rule out CVA 5. History of depression Plan: Patient has been admitted for observation, She is outside the window for tPA and has contraindications to that secondary to her recent and perineal laceration. Awaiting MRI stroke protocol, MR venography, and echo. Routine neuro checks. Routine care. Holding off on sertraline for now, will not restart that upon discharge in the case that that contributed to patient's symptoms upon presentation. DVT prophylaxis: SCDs Code: Full COVID: Negative Disposition: Anticipate discharge later today if imaging is unremarkable.
[2020-10-20] VITALS (8 sets, daily range): BP systolic 107–120; BP diastolic 56–78; PULSE 63–85; RESP 12–20; TEMP 35.9–37.4; O2SAT 94–99; BMI 27.8
--- NOTE | 2020-10-20 07:26 | DI.MRI.S_ITS ---
PROCEDURE: MR VENOGRAPHY HEAD WO CON COMPARISON: [facility], MR, MR STROKE, 10/20/2020, 10:10. INDICATIONS: syncope, for venous thrombus. FINDINGS: Three [id number] imaging was acquired, with multiple planar reconstructions. On these images, the superior sagittal sinus, straight sinus, and the transverse sinuses are normal, without abnormal narrowing. The sigmoid sinuses are likewise within normal limits. IMPRESSION: Negative for venous sinus thrombosis. Dictated by: Dalton Anne M.D. on 10/20/2020 at 10:17 Approved by: Dalton Anne M.D. on 10/20/2020 at 10:19
[2020-10-20 07:37] LABS: Add Manual Diff / Slide Review NO; Basophils Absolute Auto 0 /uL (0-100); Basophils Percent Auto 0.2 % (0-2); Eosinophils Absolute Auto 0 /uL (0-450); Eosinophils Percent Auto 0.1 % (2-4); Hematocrit 34.2 % (36-46); Hemoglobin 11.1 g/dL (12.0-16.0); Lymphocytes Absolute Auto 1900 /uL (1100-4500); Lymphocytes Percent Auto 12.5 % (25-40); Mean Corpuscular HGB Conc 32.5 % (30-36); Mean Corpuscular Hemoglobin 27.2 PG (26-34); Mean Corpuscular Volume 83.8 fL (80-100); Monocytes Absolute Auto 800 /uL (0-900); Monocytes Percent Auto 5.3 % (3-14); Neutrophils Absolute Auto 12300 /uL (1500-7000); Neutrophils Percent Auto 81.9 % (50-75); Platelet Count 248 X10^3/uL (150-400); Red Blood Cell Count 4.09 X10^6/uL (4.0-5.2); Red Cell Distribution Width 15.9 % (11.6-14.8)
[2020-10-20 07:51] LABS: BUN Creatinine Ratio 14.3 (6-22); Blood Urea Nitrogen 9 mg/dL (7-17); Calcium 8.6 mg/dL (8.4-10.2); Carbon Dioxide 24 mmol/L (22-32); Chloride 105 mmol/L (98-107); Estimated Glomerular Filt Rate > 60.0 mL/min (>60); Glucose 109 mg/dL (70-100); HEMOLYSIS < 15 (0-50); Potassium 4.4 mmol/L (3.4-5.1); Sodium 134 mmol/L (137-145)
[2020-10-20 08:23] LABS: Thyroid Stimulating Hormone 3.87 uIU/mL (0.47-4.68)
--- NOTE | 2020-10-20 08:38 | PC.NURSE ---
Addendum entered by Karen Sigala R.N. 10/20/20 17:25: 0830 Dr Herron in room, plan to follow up after MRI today 1000 Pt assisted up the bathroom prior to MRI. Vital signs remains stable. Neuro checks complete. Baby well. Pt reports intermittent mild hot flashes uterine cramping while nursing. Pt fundus firm U-1, small lochia. Pt assisted to w/c from bathroom. Out of department with MRI transport. 1050 Pt back from MRI, settled in bed. Call light in reach. 1145: VSS, checks complete. Pt given lanolin for sore nipples. Pt states she is tired but feels well. Call light in reach. Lunch tray placed on patients bedside table. 1410: Pt resting bed. Baby nursing. Pt given urine cup to collect urine for urinalysis when up to bathroom next. Lab ordered previously but never collected. Denies any needs at this time. 1655: Dinner tray placed on patients bedside table. VSS. Given ibuprofen for breast tenderness. Left AC peripheral saline lock flushed. Pt feels well. Hoping to d/c tonight, thinks she'll rest more soundly in her own bed. Baby quiet alert and held by mom. Mom smiling and interacting with baby. at bedside. Call light in reach. Original Note: 0730 ECHO in room, Kayla STALLWORTH in room. 0750 RN at bedside. VSS, assessment complete. Pt assisted to bathroom with stand by assist. Pt states that she is less shaky and feels stronger then last time. Pt denies pain. Pt states she is feeling hungry. Pt give apple juice and toast. Breakfast tray placed on patients bedside table. and baby in room at bedside. Call light in reach. Plan for MRI at 10:30
[2020-10-20] MEDS: LANOLIN OINT 7 GM 1 APPLIC TOP (11:47)
--- NOTE | 2020-10-20 14:36 | CM.DANOTE ---
Patient is a 40 yo female who was admitted on 10/19/20 for Near Syncope. Pt has [employer] and [employer] for insurance and her PCP is Kayden Hoffman. EMR was reviewed. Per MD, pt with near syncope and AMS post delivery of healthy baby. Pt with hx of depression and started on Sertraline. Pt admitted for r/o CVA. MRI and Echo ordered and completed. Pt active and independent at baseline and has local supportive spouse and family. Per RN, pt initially had weakness and unsteady on feet with some word finding difficulty but pt has improved and has had supportive spouse and infant bedside. No concerns at this time and MD to round after clinic for likely d/c home if medically stable. No identified barriers to discharge. SW called RN in Center and no concerns at this time for plan of d/c home but will notify DCP/FRENCH WEAVER if any needs arise. Plan: SW to follow closely to confirm likely plan of d/c home tonight if medically stable and any further identified needs. HERBERT Winchester Discharge Planning/Care Management CM Discharge Assessment Start: 10/20/20 14:35 Freq: Status: Active Protocol: Document 10/20/20 14:35 BF (Rec: 10/20/20 14:36 BF [id number]) Discharge Planning Assessment Assigned [employer] HERBERT Loo DPOA/Assigned Designee Name informally spouse Contact Information [phone] Advance Directives? No Advance Directives on File No History Provided By Patient,Family Member,Medical Record Has Patient been admitted in last 30 Yes days? Comment Delivery of healthy baby couple days ago Prior Living Arrangements House Household Members spouse,family,children Type of transporation used prior to Drives own vehicle admit Independent with ADL's Yes Is patient alert and oriented? Yes Caregiver for Another Yes: young child and Barriers to Discharge No Discharge Plan Home Transportation Arrangement Spouse or family to provide transport at d/c Referrals Initiated None needed Review Status In Process Please Provide Date Initial DC 10/20/20 Assessment Was Performed Next Review Type Continued Stay Review
[2020-10-20] MEDS: IBUPROFEN 600 MG TABLET PO (17:01)
[2020-10-20 17:05] LABS: Appearance Urine UA CLEAR; Bilirubin Urine UA NEGATIVE (NEGATIVE); Color Urine UA YELLOW; Glucose Urine UA NEGATIVE (Negative); Ketones Urine UA NEGATIVE (NEGATIVE); Leukocyte Esterase Urine UA NEGATIVE (NEGATIVE); Nitrite Urine UA NEGATIVE (Negative); Occult Blood Urine UA 3+ (Negative); Protein Urine UA NEGATIVE (Negative); Urobilinogen Urine UA 0.2 E.U./dL (0.2)
[2020-10-20 17:41] LABS: pH Urine UA 5.5 (4.5-8.0)
[2020-10-20 17:52] LABS: Bacteria Urine Few (2-10); Culture Indicated Urine Cult Not Indicated; Mucus Urine 1+ (Negative); RBC Urine 10-30/HPF (0-5/HPF); Squamous Epithelial Cell Urine 1-5 /HPF (0-5/HPF); WBC Urine 0-1/HPF (0-5/HPF)
--- NOTE | 2020-10-20 19:00 | P.DS_ITS ---
History of Present Illness History of Present Illness Date Patient Seen: 10/20/20 Time Patient Seen: 19:00 Chief complaint: Near Syncope Narrative: 40 year old one day status post a of a viable infant at 39w6d is admitted from the ED for observation secondary to near syncopal episode and altered mental status. was uncomplicated except for subclinical hypothyroidism. Reports that she was on the couch in her normal state of health and started feeling funny. Began having slurred speech, trouble finding her words, and acute confusion at approximately 8:00 p.m. last night. Denies fever, chills, or unusual pain. Lochia is less than menses. No dysuria, frequency, or urgency. No previous history of syncope or stroke. Was discharged on sertraline 50 mg p.o. q.day secondary to history of depression, had her 1st pill today. Viital signs upon admission to the ED included a temperature of 98.3?, pulse 93, respirations 12, blood pressure 125/63, O2 saturation 99% on room air. Patient activated as a code stroke. NIH stroke scale 2. Labs essentially unremarkable except for a slightly elevated white count and slightly low sodium. CT head showed no acute intracranial abnormalities but a possible small lacunar infarct in the left thalamus. Telehealth neurology was consulted and they recommended admission for observation and further investigation with MRI and MRV. Prior to transfer to the floor, patient was back to her baseline. She has had an uneventful night. She is breast-feeding well. pain controlled with medications. Lochia less than menses. Appetite full, no nausea or vomiting. She has been ambulating around the room. Discharge Providers Provider Date of admission: 10/19/20 22:24 Discharge Date: 10/20/20 Primary care physician: JORDIN Shabazz Consults: 10/19/20 22:34 Consult to Discharge Planning Routine Comment: Consult to Occupational Therapy Evaluate & Treat Comment: Physician Instructions: Evaluate and treat Consult to Physical Therapy Evaluate & Treat Comment: Physician Instructions: Evaluate and Treat Consult to Speech Therapy Evaluate & Treat Comment: Physician Instructions: Evaluate and treat Discharge provider: Paola Herron MD Summary Hospital Course Discharge Diagnosis: 1. Status post at 39w6d 2. 3. Pospartum Day #2 4. Near Syncope, etiology unclear 5. Left thalamus and basal ganglia cystic abnormality, 1.2 cm 6. Nonspecific frontal lobe white matter changes 7. History of depression Hospital Course: Patient had an unremarkable hospital course. Neurologically, she returned to baseline even prior to transfer to the floor; however, she did feel clammy at times and had anxiety over the event happening again. Stroke protocol MRI significant for: 1. Approximately 1.2 centimeter cystic abnormality in the left thalamus and basal ganglia, communicating with the 3rd ventricle. This likely represents either a neuroglial cyst, append mole cyst, dilated perivascular space, or potentially an area of encephalomalacia. There is no associated enhancement or gliosis. 2. Several foci of increased T2/FLAIR signal in the anterior frontal lobe white matter. These are nonspecific but most likely reflect early changes related to chronic microvascular angiopathy. There is no enhancement or associated restricted diffusion. A demyelinating disorder is considered unlikely but cannot be strictly excluded. The lesions are highly inconsistent with posterior reversal encephalopathy syndrome. MR venography negative for clot. Patient will be discharged to home with usual instructions. Will hold sertraline until she sees her PCP in 1 week. Advised at that time that she discuss outpatient neurology referral for further workup and assessment. She understands to return promptly for any recurrence or worsening of symptoms including syncope, altered mental status, slurring of speech, weakness, numbness, or any other concerns. On day of discharge she is afebrile with stable vital signs throughout, neurologically intact, and with no focal deficits. Time spent on Discharge and Coordination of post-hospital care: 35 minutes Exam Vital Signs (past 8 hours): - 10/20/20 11:43 10/20/20 14:10 10/20/20 16:55 Temperature 99.4 F 98.7 F 98.6 F Pulse Rate 73 77 80 Respiratory Rate 14 12 14 Blood Pressure 111/59 L 114/58 L 109/57 L Pulse Oximetry 96 96 Oxygen Delivery Method Room Air Narrative Exam Narrative: General: NAD Skin: Color unremarkable, no rash nor lesions HEENT: Neck supple with midline trachea Lungs: CTAB, no w/r/r Heart: Normal rate and regular rhythm, S1, S2 normal, no murmurs, click, rub or gallop Abdomen: FF, U-1, soft, non-tender, +BS Extremities: No edema, no cyanosis Neuro: Cranial nerves 2-12 grossly intact, no focal deficits. Objective Labs Result Diagrams: 10/20/20 06:41 10/20/20 06:41 Labs: Laboratory Results - last 24 hr 10/19/20 10/19/20 10/19/20 06:20 20:44 20:44 WBC 12.2 H RBC 4.30 Hgb 12.0 Hct 36.3 MCV 84.4 MCH 27.9 MCHC 33.0 RDW 15.8 H Plt Count 238 Neut % (Auto) 67.6 Lymph % (Auto) 22.7 L [place] % (Auto) 8.6 Eos % (Auto) 0.8 L Baso % (Auto) 0.3 Neut # (Auto) 8200 H Lymph # (Auto) 2800 [place] # (Auto) 1000 H Eos # (Auto) 100 Baso # (Auto) 0 PT 10.8 INR 1.0 Sodium Potassium Chloride Carbon Dioxide BUN Creatinine Estimated GFR BUN/Creatinine Ratio Glucose Calcium Magnesium TSH Urine Color Yellow Urine Appearance Clear Urine pH 5.5 Ur Specific [place] 1.020 Urine Protein Negative Urine Glucose (UA) Negative Urine Ketones Negative Urine Occult Blood 3+ H Urine Nitrate Negative Urine Bilirubin Negative Urine Urobilinogen 0.2 Ur Leukocyte Esterase Negative Urine RBC 10-30/hpf H Urine WBC 0-1/hpf Ur Squamous Epith Cells 1-5 /hpf Urine Bacteria Few (2-10) H Urine Mucus 1+ H Ur Culture Indicated? Cult not indicated Blood Type Antibody Screen 10/19/20 10/19/20 10/19/20 20:44 20:44 20:44 WBC RBC Hgb Hct MCV MCH MCHC RDW Plt Count Neut % (Auto) Lymph % (Auto) [place] % (Auto) Eos % (Auto) Baso % (Auto) Neut # (Auto) Lymph # (Auto) [place] # (Auto) Eos # (Auto) Baso # (Auto) PT INR Sodium 134 L Potassium 3.5 Chloride 106 Carbon Dioxide 20 L BUN 17 Creatinine 0.73 Estimated GFR > 60.0 BUN/Creatinine Ratio 23.3 H Glucose 99 Calcium 9.0 Magnesium 1.8 TSH Urine Color Urine Appearance Urine pH Ur Specific [place] Urine Protein Urine Glucose (UA) Urine Ketones Urine Occult Blood Urine Nitrate Urine Bilirubin Urine Urobilinogen Ur Leukocyte Esterase Urine RBC Urine WBC Ur Squamous Epith Cells Urine Bacteria Urine Mucus Ur Culture Indicated? Blood Type O Positive Antibody Screen Negative 0810/20/20 10/20/20 06:41 06:41 06:41 WBC 15.0 H RBC 4.09 Hgb 11.1 L Hct 34.2 L MCV 83.8 MCH 27.2 MCHC 32.5 RDW 15.9 H Plt Count 248 Neut % (Auto) 81.9 H Lymph % (Auto) 12.5 L [place] % (Auto) 5.3 Eos % (Auto) 0.1 L Baso % (Auto) 0.2 Neut # (Auto) 38228 H Lymph # (Auto) 1900 [place] # (Auto) 800 Eos # (Auto) 0 Baso # (Auto) 0 PT INR Sodium 134 L Potassium 4.4 Chloride 105 Carbon Dioxide 24 BUN 9 Creatinine 0.63 Estimated GFR > 60.0 BUN/Creatinine Ratio 14.3 Glucose 109 H Calcium 8.6 Magnesium TSH 3.87 Urine Color Urine Appearance Urine pH Ur Specific [place] Urine Protein Urine Glucose (UA) Urine Ketones Urine Occult Blood Urine Nitrate Urine Bilirubin Urine Urobilinogen Ur Leukocyte Esterase Urine RBC Urine WBC Ur Squamous Epith Cells Urine Bacteria Urine Mucus Ur Culture Indicated? Blood Type Antibody Screen [facility] Medical History Allergies (~2007) Asthma (~2007) Depression (~2012) Encounter for wellness examination in adult Psoriasis (~1995) Surgical History Anesthesia History of tonsillectomy (~1982) Social History household members: spouse, family and children Smoking Status: Never smoker second hand exposure: No alcohol intake: never substance use type: does not use Discharge Plan Discharge Plan Patient Disposition: Home Discharge orders & Medications Prescriptions: Continued acetaminophen 325 mg Tablet 650 mg PO Q6HR PRN (Reason: Pain, Mild (1-3)) 14 Days Qty: 60 RF: 0 ibuprofen 600 mg Tablet 600 mg PO Q6HR PRN (Reason: Pain, Mild (1-3)) 14 Days Qty: 90 RF: 0 Discontinued sertraline 50 mg tablet 50 mg PO DAILY 90 Days Qty: 90 RF: 4 Follow up/Referrals: Kayden Hoffman ARNP [Primary Care Provider] - Diet/Activity/Treatments Diet: Diet as Tolerated Activity: as tolerated Skin/Wound/Dressing Care Report to your healthcare provider any signs of infection, such as:: chills, fever, increased pain and unusual drainage Discharge Data Primary Care Provider: Kayden Hoffman Attending Provider: Paola Herron
--- NOTE | 2020-10-20 19:49 | PC.NURSE ---
IV removed from patients left AC. Discharge teaching and papers completed. Patient escorted to personal vehicle via wheelchair by this RN. Patient denies any questions or complaints at this time.
== END 2020-10-20 19:42 | disposition home or self-care (01) ==
LOC: ED 21:21 → AC 22:26 → LABOR 10-20 00:23
PROVIDERS: Admitting Provider Student in an Organized Health Care Education/Training Program; Emergency Provider Emergency Medicine; PCP Nurse Practitioner Family; Visit Provider Student in an Organized Health Care Education/Training Program
DX: R90.89 Other abnormal findings on diagnostic imaging of central nervous system (principal); R90.82 White matter disease, unspecified; R29.702 NIHSS score 2; R55 Syncope and collapse; O99.345 Other mental disorders complicating the puerperium; F53.0 Postpartum depression; R47.81 Slurred speech; R41.0 Disorientation, unspecified
CPT/HCPCS: 36415; 70450; 70496; 70498; 70544; 70548; 70553; 80048; 81001; 83735; 84443; 85025; 85610; 86850; 86900; 86901; 93005; 93306; 99285; G0378; Q9967